=== PATIENT | female | born 1965 | race Caucasian/White ===

== ENCOUNTER 2021-03-03 19:12 | Emergency (ER) | payer OTHER ==
[~2021-03-03 19:12] MED LIST: ASPIRIN CHEWABL81 MG PO; GLUCOTROL5 MG PO; HCTZ25 MG PO; LEVAQUIN750 MG PO; PRILOSEC20 MG PO; SYMBICORT 1601 PUFFS INH; VENTOLIN (2.5 MG/3 M INH; XANAX0.5 MG PO; ZOFRAN4 MG SL
[2021-03-03 20:27] LABS: BASOPHIL 0.5 % (0-2); EOSINOPHIL 0.2 % (0-5); HCT 40.8 % (37.0-47.0); HGB 12.6 g/dl (12.5-16.0); LYMPHOCYTE 25.1 % (15-48); MCH 23.3 pg (25.0-31.0); MCHC 30.9 g/dL (32.0-36.0); MCV 75.6 fL (78.0-100.0); MONOCYTE 5.6 % (0-12); MPV 11.6 fL (6.0-9.5); NEUTROPHIL 68.2 % (41-80); NRBC 0; PLT 392 K/uL (150-400); RDW 19.7 % (11.5-14.0); WBC 12.9 K/uL (4.0-10.5)
[2021-03-03 20:49] LABS: ALBUMIN 3.5 g/dL (3.4-5.0); BILIRUBIN - TOTAL 0.7 mg/dL (0.2-1.0); BUN/CREAT RATIO (CALC) 21.9 RATIO; CREATININE 0.96 mg/dL (0.51-0.95); GLOBULIN (CALCULATION) 4.9 g/dL; POTASSIUM 4.3 mmol/L (3.5-5.1); TOTAL PROTEIN 8.4 g/dL (6.4-8.2)
[2021-03-03 20:57] LABS: LACTIC ACID 2.1 mmol/L (0.4-1.9)
[2021-03-03 22:11] LABS: BILIRUBIN NEGATIVE (NEGATIVE); BLOOD NEGATIVE Ery/uL (NEGATIVE); CLARITY CLEAR (CLEAR); COLOR YELLOW (YELLOW); GLUCOSE (U) NORMAL (NORMAL); LEUKOCYTES 1+ Leu/uL (NEGATIVE); NITRITE NEGATIVE (NEGATIVE); PROTEIN NEGATIVE (NEGATIVE); UROBILINOGEN 0.2 mg/dL (0.2-1.0); pH 5.5 (5.0-9.0)
[2021-03-03 22:18] LABS: AMYLASE 51 U/L (25-115); LIPASE 140 U/L (73-393)
[2021-03-03 22:24] LABS: BACTERIA 1+; URINARY WBC RARE
[2021-03-03] MEDS ORDERED: ZUPLENZ4 MG PO (23:17)
== END 2021-03-03 23:45 | disposition home or self-care (01) ==
LOC: FER 19:12
PROVIDERS: Nurse Practitioner Family
DX: K80.20 Calculus of gallbladder without cholecystitis without obstruction (principal); E11.9 Type 2 diabetes mellitus without complications; I10 Essential (primary) hypertension; J44.9 Chronic obstructive pulmonary disease, unspecified; K21.9 Gastro-esophageal reflux disease without esophagitis; F17.210 Nicotine dependence, cigarettes, uncomplicated; Z88.0 Allergy status to penicillin; Z79.899 Other long term (current) drug therapy; Z79.82 Long term (current) use of aspirin; Z79.84 Long term (current) use of oral hypoglycemic drugs
CPT/HCPCS: 36415; 80053; 81001; 82150; 83605; 83690; 85025; 87040; J2405; J7030; Q9967

== ENCOUNTER 2021-03-04 08:05 | Emergency (ER) | payer OTHER ==
[~2021-03-04 08:05] MED LIST changes: +ZUPLENZ4 MG PO
[2021-03-04 08:33] LABS: BASOPHIL 0.5 % (0-2); EOSINOPHIL 0.1 % (0-5); HCT 40.9 % (37.0-47.0); HGB 12.4 g/dl (12.5-16.0); LYMPHOCYTE 23.2 % (15-48); MCH 23.3 pg (25.0-31.0); MCHC 30.3 g/dL (32.0-36.0); MCV 76.7 fL (78.0-100.0); MONOCYTE 6.1 % (0-12); MPV 11.5 fL (6.0-9.5); NEUTROPHIL 69.6 % (41-80); NRBC 0; PLT 380 K/uL (150-400); RBC 5.33 M/uL (4.20-5.40); RDW 19.4 % (11.5-14.0); WBC 11.9 K/uL (4.0-10.5)
[2021-03-04 08:49] LABS: ALBUMIN 3.4 g/dL (3.4-5.0); BILIRUBIN - TOTAL 0.7 mg/dL (0.2-1.0); BUN/CREAT RATIO (CALC) 19.5 RATIO; CREATININE 0.87 mg/dL (0.51-0.95); GLOBULIN (CALCULATION) 4.9 g/dL; POTASSIUM 3.9 mmol/L (3.5-5.1); TOTAL PROTEIN 8.3 g/dL (6.4-8.2)
== END 2021-03-04 09:20 | disposition home or self-care (01) ==
LOC: FER 08:05
PROVIDERS: Emergency Medicine
DX: K80.20 Calculus of gallbladder without cholecystitis without obstruction (principal); R03.0 Elevated blood-pressure reading, without diagnosis of hypertension; I10 Essential (primary) hypertension; E11.9 Type 2 diabetes mellitus without complications; F17.210 Nicotine dependence, cigarettes, uncomplicated; Z88.0 Allergy status to penicillin; Z88.5 Allergy status to narcotic agent; Z79.84 Long term (current) use of oral hypoglycemic drugs; Z79.82 Long term (current) use of aspirin; Z79.899 Other long term (current) drug therapy
CPT/HCPCS: 36415; 80053; 83690; 85025; 93005

== ENCOUNTER 2021-11-07 21:17 | Emergency (ER) | payer OTHER ==
[~2021-11-07 21:17] MED LIST changes: +ATARAX25 MG PO; +ATIVAN1 MG PO; +EFFEXOR XR150 MG PO; +K-TAB ER10 MEQ PO; +LASIX20 MG PO; +METFORMIN HCL500 MG PO
[2021-11-07 22:09] LABS: BASOPHIL 0.3 % (0-2); EOSINOPHIL 0 % (0-5); HCT 38.8 % (37.0-47.0); HGB 9.7 g/dl (12.5-16.0); LYMPHOCYTE 15.7 % (15-48); MCH 17.2 pg (25.0-31.0); MCV 68.8 fL (78.0-100.0); MONOCYTE 10.8 % (0-12); NEUTROPHIL 72.8 % (41-80); NRBC 0.4; PLT 338 K/uL (150-400); RBC 5.64 M/uL (4.20-5.40); RDW 23.7 % (11.5-14.0); WBC 8.9 K/uL (4.0-10.5)
[2021-11-07 22:27] LABS: LACTIC ACID 3.1 mmol/L (0.4-1.9)
[2021-11-07 22:29] LABS: ALBUMIN 3.1 g/dL (3.4-5.0); BILIRUBIN - TOTAL 1.6 mg/dL (0.2-1.0); BUN/CREAT RATIO (CALC) 28.6 RATIO; CREATININE 0.77 mg/dL (0.51-0.95); GLOBULIN (CALCULATION) 4.7 g/dL; POTASSIUM 3.6 mmol/L (3.5-5.1); TOTAL PROTEIN 7.8 g/dL (6.4-8.2)
[2021-11-07 23:07] LABS: CORONAVIRUS 2019 SARS-COV-2 NEGATIVE (NEGATIVE); INFLUENZA A NAA NEGATIVE (NEGATIVE)
[2021-11-08] MEDS ORDERED: LASIX40 MG PO (02:53)
[2021-11-08 03:26] LABS: BILIRUBIN NEGATIVE (NEGATIVE); BLOOD NEGATIVE Ery/uL (NEGATIVE); CLARITY CLEAR (CLEAR); COLOR YELLOW (YELLOW); GLUCOSE (U) NORMAL (NORMAL); LEUKOCYTES NEGATIVE Leu/uL (NEGATIVE); NITRITE NEGATIVE (NEGATIVE); PROTEIN 2+ mg/dL (NEGATIVE); SPECIFIC GRAVITY 1.025 (1.001-1.030); pH 5.5 (5.0-9.0)
[2021-11-08 03:33] LABS: AMPHETAMINES NEGATIVE (NEGATIVE); BARBITURATES NEGATIVE (NEGATIVE); ECSTASY (MDMA) NEGATIVE (NEGATIVE); MARIJUANA (THC) NEGATIVE (NEGATIVE); METHADONE NEGATIVE (NEGATIVE); OPIATES NEGATIVE (NEGATIVE); OXYCODONE NEGATIVE (NEGATIVE)
[2021-11-08 03:36] LABS: BACTERIA 2+
[2021-11-08 03:37] LABS: RENAL EPITHELIAL CELLS RARE
[2021-11-08 03:38] LABS: URINARY RBC RARE
== END 2021-11-08 03:17 | disposition home or self-care (01) ==
LOC: FER 21:17
PROVIDERS: Emergency Medicine
DX: I11.0 Hypertensive heart disease with heart failure (principal); I50.9 Heart failure, unspecified; E04.1 Nontoxic single thyroid nodule; E11.9 Type 2 diabetes mellitus without complications; J44.9 Chronic obstructive pulmonary disease, unspecified; F17.200 Nicotine dependence, unspecified, uncomplicated; Z88.0 Allergy status to penicillin; Z88.5 Allergy status to narcotic agent; Z88.8 Allergy status to other drugs, medicaments and biological substances; Z20.822 Contact with and (suspected) exposure to COVID-19
CPT/HCPCS: 36415; 71275; 80053; 80305; 81001; 83605; 83880; 84145; 84484; 85025; 85379; 87040; 93005; 93971; J0690; J1940; J7030; Q9967; U0002